=== PATIENT | female | born 1940 | race Hispanic/Latino ===

== ENCOUNTER 2016-06-25 14:42 | Observation (INO) | payer MEDICARE, OTHER ==
[2016-06-25 14:42] VITALS: BMI 18.8
[2016-06-25 14:53] VITALS: TEMP 97.9
--- NOTE | 2016-06-25 15:25 | C.PDOC ---
History Of Present Illness 75-year-old female, presents to the emergency department with complaints of persistent non-bloody/non-bilious vomiting and watery/non-bloody diarrhea x2 weeks. Patient notes that she has associated generalized weakness, intermittent dizziness, 10lb weight loss and loss of appetite. Denies fever, sick contacts, recent antibiotic use, abdominal pain/cramping, or any other associated symptoms. Secondary complaint is anxiety exacerbation. Patient recently discharged from psych at [facility]. She is compliant with medication. No other complaints at this time. PERSIST V/D X 2 WEEKS. MULTIPLE WATERY BM, VOMITING. NO APPETITE. +GEN WEAKNESS , INTERMIT DIZZY, +WT LOSS >10 LBS. NO FEVER, SICK CONTACTS, RECENT ABX USE. NO ABD PAIN, CRAMPING. REFERRED FROM [facility]. ALSO CO ANXIETY EXAC. RECENT DC FROM PSYCH @ [facility]. COMPLIANT W PSYCH MEDS EXAM MILD DIST NONTOXIC MM DRY ABD SOFT NT ND NO R/G PSYCH ANXIOUS BUT CALM, CONSOLABLE. APPROPRIATE. Time Seen by Provider: 06/25/16 15:01 Chief Complaint (Nursing): Abdominal Pain History Per: Patient History/Exam Limitations: no limitations Onset/Duration Of Symptoms: Days Current Symptoms Are (Timing): Still Present Severity: Moderate Past Medical History Reviewed: Historical Data, Nursing Documentation, Vital Signs Vital Signs: Last Vital Signs Temp 97.9 F 06/25/16 14:50 Pulse 115 H 06/25/16 14:50 Resp 20 06/25/16 14:50 BP 121/75 06/25/16 14:50 Pulse Ox 100 06/25/16 16:07 - Medical History PMH: Anxiety, Depression, Hypercholesterolemia Denies: Chronic Kidney Disease - [facility] Procedures GROUP PSYCHOTHERAPY (06/01/16) INDIVIDUAL PSYCHOTHERAPY, BEHAVIORAL (06/01/16) Family History: States: No Known Family Hx - Social History Hx Alcohol Use: No Hx Substance Use: No - Immunization History Hx Tetanus Toxoid Vaccination: No Hx Influenza Vaccination: No Hx Pneumococcal Vaccination: No Review Of Systems Except As Marked, All Systems Reviewed And Found Negative. Constitutional: Positive for: Weakness. Negative for: Fever, Chills Cardiovascular: Negative for: Chest Pain, Palpitations Respiratory: Negative for: Shortness of Breath Gastrointestinal: Positive for: Nausea, Vomiting, Diarrhea Musculoskeletal: Negative for: Back Pain Neurological: Positive for: Dizziness Physical Exam - Physical Exam Appears: Non-toxic, No Acute Distress (Mild), Other (ANXIOUS BUT CALM, CONSOLABLE. APPROPRIATE.) Skin: Warm, Dry, No Rash Head: Atraumatic, Normacephalic Eye(s): bilateral: Normal Inspection, PERRL Nose: Normal Oral Mucosa: Moist Lips: Normal Appearing Neck: Normal ROM Cardiovascular: Rhythm Regular Respiratory: Normal Breath Sounds, No Accessory Muscle Use Extremity: Normal ROM Neurological/Psych: Oriented x3 ED Course And Treatment - Laboratory Results Result Diagrams: 06/25/16 15:49 06/25/16 15:49 O2 Sat by Pulse Oximetry: 100 Progress - Data Reviewed Data Reviewed: Old records ED OBSERVATION Discharge: Yes Date of observation admission: 06/25/16 Time of observation admission: 15:15 - Observation admission statement Patient is being placed in observation because:: V/D; WEAKNESS - Goals of Observation Goals of observation are:: SX IMPROVE - Progress Note Progress Note: 06/25/16 18:36 FEELS BETTER. +PO WO DIFF. NO VOMITING WHILE IN ER. +UO SINCE IVF. Disposition Counseled Patient/Family Regarding: Studies Performed, Diagnosis, Need For Followup, Rx Given - Disposition Disposition: HOME/ ROUTINE Disposition Time: 18:36 Condition: IMPROVED - Clinical Impression Clinical Impression: Vomiting, Diarrhea, Anxiety, Dehydration - Scribe Statement The provider has reviewed the documentation as recorded by the Luiza Keith All medical record entries made by the Kellyibjoy were at my direction and personally dictated by me. I have reviewed the chart and agree that the record accurately reflects my personal performance of the history, physical exam, medical decision making, and the department course for this patient. I have also personally directed, reviewed, and agree with the discharge instructions and disposition.
[2016-06-25] MEDS ORDERED: Sodium Chloride 0.9% 1,000 ML IV ONE ×2 (15:34)
[2016-06-25] MEDS ORDERED: Iohexol 240 (50 ml) PO STA (15:34)
[2016-06-25 15:54] LABS: BASO # 0.1 K/uL (0.0-0.2); BASO % 0.9 % (0.0-2.0); EOS # 0.5 K/uL (0.0-0.7); EOS % 4.9 % (0.0-4.0); HEMATOCRIT 33.5 % (34.0-47.0); LYMPH % 10.7 % (20.0-40.0); MEAN CELL VOLUME 78.5 fL (81.0-99.0); MEAN CORPUSCULAR HEMOGLOBIN 24.9 pg (27.0-31.0); MEAN CORPUSCULAR HGB CONC 31.7 g/dL (33.0-37.0); MONO # 0.5 K/uL (0.0-0.8); MONO % 5.8 % (0.0-10.0); RED CELL DISTRIBUTION WIDTH 17.9 % (11.5-14.5); WHITE BLOOD COUNT 9.4 K/uL (4.8-10.8)
[2016-06-25] MEDS ORDERED: Iohexol 240 (50 ml) ONE (15:55)
[2016-06-25] MEDS ORDERED: Sodium Chloride 0.9% 1,000 ML ONE (15:57)
[2016-06-25 16:02] LABS: POTASSIUM 4.8 mmol/L (3.6-5.2)
[2016-06-25 16:02] LABS: RBC URINE 1 /hpf (0-3); URINE BACTERIA RARE (<OCC); URINE BILIRUBIN NEGATIVE (NEGATIVE); URINE BLOOD NEGATIVE (NEGATIVE); URINE COLOR Yellow (YELLOW); URINE GLUCOSE (UA) NORMAL (Normal); URINE KETONE NEGATIVE (NEGATIVE); URINE LEUKOCYTE ESTERASE 1+ Leu/uL (Negative); URINE PROTEIN NEGATIVE (NEGATIVE); URINE UROBILINOGEN NORMAL mg/dL (0.2-1.0); WBC URINE 17 /hpf (0-5)
[2016-06-25 16:04] LABS: ALB/GLOB RATIO 1.5 (1.0-2.1); BILIRUBIN,TOTAL 0.4 mg/dL (0.2-1.3); TOTAL PROTEIN 7.7 g/dL (6.3-8.3)
[2016-06-25 16:05] LABS: CALCIUM 8.5 mg/dl (8.6-10.4)
[2016-06-25] MEDS ORDERED: Iohexol 350mg/ml 100 ML ONE (17:25)
[2016-06-25 19:07] VITALS: BP 147/71; PULSE 66; RESP 18; O2SAT 95
--- NOTE | 2016-06-26 08:34 | CT ---
PROCEDURE: CT Abdomen and Pelvis without intravenous contrast HISTORY: vomiting, diarrhea COMPARISON: None. TECHNIQUE: Without contrast.. Contrast Dose: 0 Radiation dose: Total exam DLP = 220.73 mGy-cm. This CT exam was performed using one or more of the following dose reduction techniques: Automated exposure control, adjustment of the mA and/or kV according to patient size, and/or use of iterative reconstruction technique. FINDINGS: LOWER THORAX: Minimal subsegmental atelectasis versus fibrotic scar in right middle lobe. Possibly related to prior x-ray therapy of right breast. 5 mm nodule in right middle lobe. No followup required for low risk patient. Diffusely increased parenchymal markings and some skin thickening of anterior right breast. Findings consistent with prior radiation therapy. Please correlate with clinical history. Nonspecific circumferential mural thickening of distal thoracic esophagus. Consider correlation with endoscopy. LIVER: Unremarkable. No gross lesion or ductal dilatation. GALLBLADDER AND BILE DUCTS: Unremarkable. PANCREAS: Unremarkable. No gross lesion or ductal dilatation. SPLEEN: Unremarkable. ADRENALS: Unremarkable. No mass. KIDNEYS AND URETERS: 4 mm nonobstructing mid left renal calculus. No right renal calculus. No renal mass or hydronephrosis. VASCULATURE: Unremarkable. No aortic aneurysm. BOWEL: Sigmoid diverticulosis without evidence of diverticulitis. Mild mural thickening of sigmoid colon likely the result of chronic muscularis hypertrophy. No other abnormal bowel loops. No bowel obstruction. APPENDIX: Unremarkable. Normal appendix. PERITONEUM: Unremarkable. No free fluid. No free air. LYMPH NODES: Unremarkable. No enlarged lymph nodes. BLADDER: Unremarkable. REPRODUCTIVE: Normal uterus BONES: No acute fracture. OTHER FINDINGS: None. IMPRESSION: No evidence of bowel obstruction. Sigmoid diverticulosis without evidence of diverticulitis. Nonspecific circumferential mural thickening distal thoracic esophagus. Consider correlation with endoscopy. Nonobstructing 4 mm left renal calculus. 5 mm nodule in right middle lobe. No followup required for low risk patient as per Fleischner society criteria. Preliminary interpretation of this examination was reported by [facility] at 6:28 p.m. on 06/25/2016. There is concurrence of this report with the preliminary interpretation.
[2016-07-13] MEDS ORDERED: Sodium Chloride 0.9% 1,000 ML ONE (17:38)
== END 2016-06-25 18:36 | disposition home or self-care (01) ==
LOC: C.ER 14:42 → C.9OBSV 15:15
PROVIDERS: ADMIT Emergency Medicine; ATTEND Emergency Medicine
DX: E86.0 Dehydration (principal); F41.9 Anxiety disorder, unspecified; E78.00 Pure hypercholesterolemia, unspecified; Z68.1 Body mass index [BMI] 19.9 or less, adult
CPT/HCPCS: 74176; 80053; 81001; 83690; 85025; 96361; 96374; 96375; 99284; G0378; J2060; J2405; J7040; Q9966

== ENCOUNTER 2016-07-13 16:16 | Emergency (ER) | payer MEDICARE, OTHER ==
[2016-07-13 16:26] VITALS: BMI 18.8
[2016-07-13] MEDS ORDERED: Sodium Chloride 0.9% 1,000 ML IV ONE (17:21)
[2016-07-13 17:56] LABS: BASO # 0.1 K/uL (0.0-0.2); BASO % 0.6 % (0.0-2.0); EOS # 0.4 K/uL (0.0-0.7); EOS % 3.5 % (0.0-4.0); HEMATOCRIT 32.3 % (34.0-47.0); LYMPH # 0.5 K/uL (1.0-4.3); LYMPH % 4.3 % (20.0-40.0); MEAN CELL VOLUME 78.4 fL (81.0-99.0); MEAN CORPUSCULAR HEMOGLOBIN 24.8 pg (27.0-31.0); MEAN CORPUSCULAR HGB CONC 31.7 g/dL (33.0-37.0); MEAN PLATELET VOLUME 8.3 fL (7.2-11.7); MONO # 0.8 K/uL (0.0-0.8); MONO % 7.2 % (0.0-10.0); PLATELET COUNT 517 K/uL (130-400); RED CELL DISTRIBUTION WIDTH 17.7 % (11.5-14.5); WHITE BLOOD COUNT 11.3 K/uL (4.8-10.8)
[2016-07-13 18:02] LABS: CHLORIDE 94 mmol/L (98-107)
[2016-07-13 18:03] LABS: POTASSIUM 4.2 mmol/L (3.6-5.2); SODIUM 130 mmol/L (132-148)
[2016-07-13 18:05] LABS: ALB/GLOB RATIO 1.5 (1.0-2.1); ALKALINE PHOSPHATASE 47 U/L (38-126); AST/SGOT 15 U/L (14-36); BILIRUBIN,TOTAL 0.4 mg/dL (0.2-1.3); BLOOD UREA NITROGEN 26 mg/dL (7-17); CARBON DIOXIDE 19 mmol/L (22-30); GFR AFRICAN-AMERICAN 44; TOTAL PROTEIN 6.6 g/dL (6.3-8.3)
[2016-07-13 18:06] LABS: ALT/SGPT 20 U/L (9-52); GLUCOSE,RANDOM 98 mg/dL (65-105); MAGNESIUM 1.2 mg/dL (1.6-2.3)
[2016-07-13 18:07] LABS: ALCOHOL SERUM < 10 mg/dl (0-10)
[2016-07-13 18:32] LABS: BASOPHIL 1 % (0-2); EOSINOPHIL 2 % (0-4); NEUTROPHIL 85 % (50-75); REACTIVE LYMPHOCYTES 1 % (0-0); TOTAL CELLS COUNTED 100
[2016-07-13 18:33] LABS: LARGE PLATELETS PRESENT
[2016-07-13 18:35] LABS: RBC URINE < 1 /hpf (0-3); URINE BILIRUBIN NEGATIVE (NEGATIVE); URINE BLOOD NEGATIVE (NEGATIVE); URINE COLOR Yellow (YELLOW); URINE GLUCOSE (UA) NORMAL (Normal); URINE KETONE TRACE mg/dL (NEGATIVE); URINE LEUKOCYTE ESTERASE 2+ Leu/uL (Negative); URINE PROTEIN NEGATIVE (NEGATIVE); URINE UROBILINOGEN NORMAL mg/dL (0.2-1.0); WBC URINE 19 /hpf (0-5)
[2016-07-13] MEDS ORDERED: Magnesium Sulfate 1 gm in D5W 1 GM/100 ML BAG IVPB ONE ×2 (20:10→20:23)
[2016-07-13] MEDS ORDERED: Lactated Ringer's 1,000 ML IVB ONE (20:10)
[2016-07-13] MEDS ORDERED: Lactated Ringer's 1,000 ML ONE (20:23)
--- NOTE | 2016-07-13 21:04 | CT ---
EXAM: CT Head Without Intravenous Contrast CLINICAL HISTORY: 75 years old, female; Injury or trauma; Fall; Initial encounter; Abrasion; Not specified; Additional info: Head injury S/P fall yesterday? TECHNIQUE: Axial computed tomography images of the head/brain without intravenous contrast. This CT exam was performed using one or more of the following dose reduction techniques: automated exposure control, adjustment of the mA and/or kV according to patient size, and/or use of iterative reconstruction technique. EXAM DATE/TIME: Exam ordered 07/13/2016 8:11 PM COMPARISON: No relevant prior studies available. FINDINGS: Brain: Unremarkable. No hemorrhage. No significant white matter disease. No edema. Ventricles: Unremarkable. No ventriculomegaly. Bones/joints: Unremarkable. No acute fracture. Soft tissues: Unremarkable. Sinuses: Unremarkable as visualized. No acute sinusitis. Mastoid air cells: Unremarkable as visualized. No mastoid effusion. IMPRESSION: Normal head/brain CT.
--- NOTE | 2016-07-13 21:55 | C.PDOC ---
Time Seen by Provider: 07/13/16 17:07 Chief Complaint (Nursing): GI Problem History Per: Patient, Family Onset/Duration Of Symptoms: Days Current Symptoms Are (Timing): Still Present Severity: Moderate Quality Of Discomfort: Unable To Describe Associated Symptoms: Nausea, Vomiting, Loss Of Appetite Exacerbating Factors: Food Alleviating Factors: None Last Bowel Movement: Today Additional History Per: Prior Records Past Medical History Reviewed: Historical Data, Nursing Documentation, Vital Signs Vital Signs: Last Vital Signs Temp 99.1 F 07/13/16 20:28 Pulse 115 H 07/13/16 20:28 Resp 20 07/13/16 20:28 BP 126/92 H 07/13/16 20:28 Pulse Ox 99 07/13/16 20:28 - Medical History PMH: Anxiety, Depression, Diabetes, Hypercholesterolemia, Malignancy (Breast) Other Surgeries: Breast cancer surgery - [facility] Procedures GROUP PSYCHOTHERAPY (06/01/16) INDIVIDUAL PSYCHOTHERAPY, BEHAVIORAL (06/01/16) Family History: States: Unknown Family Hx - Social History Hx Alcohol Use: No Hx Substance Use: No - Immunization History Hx Tetanus Toxoid Vaccination: No Hx Influenza Vaccination: No Hx Pneumococcal Vaccination: No Review Of Systems Except As Marked, All Systems Reviewed And Found Negative. Constitutional: Positive for: Malaise. Negative for: Fever Cardiovascular: Negative for: Chest Pain Respiratory: Positive for: Cough. Negative for: Shortness of Breath, Hemoptysis Gastrointestinal: Positive for: Nausea, Vomiting. Negative for: Constipation, Melena, Hematochezia, Hematemesis Genitourinary: Negative for: Dysuria Musculoskeletal: Negative for: Neck Pain, Back Pain Skin: Negative for: Rash Neurological: Positive for: Headache (Pt states she fell and hit her head 1-2 days ago). Negative for: Weakness, Numbness, Seizures, Altered Mental Status Psych: Positive for: Anxiety Physical Exam - Physical Exam Appears: No Acute Distress Skin: Normal Color, Warm, Dry, No Rash Head: Atraumatic, Normacephalic Eye(s): bilateral: Normal Inspection, PERRL, EOMI Lips: Contusion Neck: Normal ROM, No Midline Cervical Tenderness, No Step Off Deformity, Supple Chest: No Tenderness Cardiovascular: Rhythm Regular Respiratory: Normal Breath Sounds, No Accessory Muscle Use Gastrointestinal/Abdominal: Bowel Sounds (wnl), Soft, No Distention, No Guarding , No Rebound Back: No CVA Tenderness Extremity: Normal ROM, No Deformity Neurological/Psych: Oriented x3, Normal Motor, Normal Sensation ED Course And Treatment - Laboratory Results Result Diagrams: 07/13/16 17:47 07/13/16 17:47 Interpretation Of Abnormal: Mild anemia, renal insufficiency and hypomagnesemia. O2 Sat by Pulse Oximetry: 99 Pulse Ox Interpretation: Normal - Radiology CXR: Interpreted by Me, Viewed By Me CXR Interpretation: Yes: Other (Abnormal right lung, but unchanged from pior. ) Progress Note: Pt feels better and wants to go home with her family. Reassessment Condition: Improved Progress - Interventions Interventions:: Observation, Intravenous fluid - Medications Administered Intravenous: Antiemetic, Other (Mg. PPI) - Data Reviewed Data Reviewed: Lab, Diagnostic imaging, Old records - Patient Status Patient status: Mostly improved - Continuity of Care Discussed patient case with:: Patient, Family-HIPPA compliant, ED Nurse - Patient Plan Patient Plan: Discharge, F/U with PCP, Continue present meds Disposition Counseled Patient/Family Regarding: Studies Performed, Diagnosis, Need For Followup, Rx Given - Disposition Disposition: HOME/ ROUTINE Disposition Time: 21:57 Condition: IMPROVED Additional Instructions: Follow up with your doctor further evaluation and treatment, including referral to a Hostage Negotiator. Return to the ER if you develop worsening of symptoms or if you have any other concerns. Prescriptions: Multivit with Iron-Minerals [Centravites 50 Plus] 1 each PO DAILY #30 tablet Ondansetron [Zofran] 4 mg PO Q8H PRN #15 tab PRN Reason: Nausea/Vomiting Pantoprazole Sodium [Protonix] 40 mg PO DAILY #14 ect Instructions: Acute Nausea and Vomiting (ED) - Clinical Impression Clinical Impression: Loss of appetite, Nausea
[2016-07-13 22:33] VITALS: BP 127/72; PULSE 124; RESP 18; TEMP 99.6; O2SAT 98
--- NOTE | 2016-07-14 10:45 | RAD ---
HISTORY: Cough COMPARISON: No prior. FINDINGS: LUNGS: The lungs are clear. PLEURA: There is nonspecific pleural-based calcification in the right lateral upper lobe. No significant pleural effusion identified, no pneumothorax apparent. CARDIOVASCULAR: Normal. OSSEOUS STRUCTURES: No significant abnormalities. VISUALIZED UPPER ABDOMEN: Normal. OTHER FINDINGS: None. IMPRESSION: No acute findings.
--- NOTE | 2016-07-14 17:40 | CARD ---
APPROVED REPORT EKG Measurement Heart [id number] <Conclusion> Sinus tachycardia with occasional PVCs Possible Left atrial enlargement Low voltage QRS Borderline ECG
== END 2016-07-13 22:59 | disposition home or self-care (01) ==
LOC: C.ER 16:16
DX: R63.0 Anorexia (principal); R11.0 Nausea
CPT/HCPCS: 70450; 71010; 80053; 80164; 81001; 83690; 83735; 83880; 84484; 85025; 87086; 93005; 96361; 96365; 96375; 99285; C9113; G0480; J2405; J3475; J7040; J7120